=== PATIENT | male | born 1965 ===

== ENCOUNTER 2020-04-02 08:27 | Day surgery (SDC) | payer BC ==
[~2020-04-02] VITALS: Ht 182.9 cm; Wt 126.7 kg
[~2020-04-02 08:27] MED LIST: ALEVE220 MG PO; AMLODIPINE-BEN1 EAC5 PO; IBUP800 PO; TRAM50; VOLTAREN ARTHRI20 GM TOP
== END 2020-04-02 10:24 | disposition home or self-care (01) ==
LOC: ORSCSDS 08:27
PROVIDERS: Internal Medicine Gastroenterology
PROC: 0DBP8ZX Excision of Rectum, Via Natural or Artificial Opening Endoscopic, Diagnostic (ICD-10-PCS; principal; 2020-04-02 09:45)
DX: Z12.11 Encounter for screening for malignant neoplasm of colon (principal); Z86.010 Personal history of colon polyps; D12.8 Benign neoplasm of rectum; K64.8 Other hemorrhoids; I10 Essential (primary) hypertension; E78.5 Hyperlipidemia, unspecified; Z79.899 Other long term (current) drug therapy
CPT/HCPCS: 88305; J2704; J7120